=== PATIENT | female | born 1945 | race Caucasian/White ===

== ENCOUNTER 2019-02-28 14:32 | Emergency (ER) | payer OTHER ==
[~2019-02-28] VITALS: Ht 157.5 cm; Wt 59.0 kg
[2019-02-28] MEDS ORDERED: LOTREL 10-20 M1 EACH (14:52)
[2019-02-28] MEDS ORDERED: ATACAND32 MG (14:52)
[2019-02-28] MEDS ORDERED: SKELAXIN800 MG PO (17:31)
[2019-02-28] MEDS ORDERED: KETO10TA2 PO (17:31)
== END 2019-02-28 19:06 | disposition home or self-care (01) ==
LOC: ER 14:32
DX: S01.81XA Laceration without foreign body of other part of head, initial encounter (principal); W18.39XA Other fall on same level, initial encounter; Y93.89 Activity, other specified; Y92.59 Other trade areas as the place of occurrence of the external cause; Y99.8 Other external cause status

== ENCOUNTER 2019-12-05 08:00 | Inpatient (IN) | payer OTHER ==
[~2019-12-05] VITALS: Ht 160 cm; Wt 58.5 kg
[~2019-12-05 08:00] MED LIST: ATACAND32 MG; KETO10TA2 PO; LOTREL 10-20 M1 EACH; SKELAXIN800 MG PO
[2020-02-06] MEDS ORDERED: ATACAND HCT 321 EAC1 PO (08:37)
[2020-02-10] MEDS ORDERED: CODE1TAB37 PO (11:22)
[2020-02-10] MEDS ORDERED: IBUPROFEN400 MG PO (11:23)
== END 2020-02-10 12:27 | disposition home or self-care (01) | DRG 743 ==
LOC: O/R 12-12 08:00 → OB/GYN 02-06 05:37 → O/R 02-06 07:15 → OB/GYN 02-06 11:03
PROVIDERS: ADMIT Obstetrics & Gynecology
PROC: 0UT70ZZ Resection of Bilateral Fallopian Tubes, Open Approach (ICD-10-PCS; 2020-02-06)
PROC: 0UT20ZZ Resection of Bilateral Ovaries, Open Approach (ICD-10-PCS; 2020-02-06)
PROC: 0TJB8ZZ Inspection of Bladder, Via Natural or Artificial Opening Endoscopic (ICD-10-PCS; 2020-02-06)
PROC: 0UT90ZZ Resection of Uterus, Open Approach (ICD-10-PCS; principal; 2020-02-06 07:15)
DX: N95.0 Postmenopausal bleeding (principal); C54.1 Malignant neoplasm of endometrium; I10 Essential (primary) hypertension

== ENCOUNTER 2020-03-06 08:27 | Outpatient (CLI) | payer OTHER ==
[~2020-03-06 08:27] MED LIST changes: +ATACAND HCT 321 EAC1 PO; +CODE1TAB37 PO; +IBUPROFEN400 MG PO
== END 2020-03-06 08:47 | disposition home or self-care (01) ==
LOC: NUCLEAR 08:27
PROVIDERS: ATTEND Obstetrics & Gynecology Gynecologic Oncology
DX: C54.1 Malignant neoplasm of endometrium (principal)
CPT/HCPCS: 78815; A9552

== ENCOUNTER 2020-04-02 07:00 | Day surgery (SDC) | payer OTHER ==
[~2020-04-02] VITALS: Ht 157.5 cm; Wt 53.5 kg
[~2020-04-02 07:00] MED LIST changes: -LOTREL 10-20 M1 EACH; +LOTREL 10-20 M1 EACH PO
== END 2020-04-02 13:00 | disposition home or self-care (01) ==
LOC: CIR.AMB 07:00 → OB/GYN 07:45 → ADM 07:45 → EDSTATUS 07:45 → CIR.AMB 07:45 → O/R 17:35
PROVIDERS: ATTEND Obstetrics & Gynecology Gynecologic Oncology
DX: C54.1 Malignant neoplasm of endometrium (principal); R59.0 Localized enlarged lymph nodes; Z20.828 Contact with and (suspected) exposure to other viral communicable diseases; Z85.42 Personal history of malignant neoplasm of other parts of uterus; Z08 Encounter for follow-up examination after completed treatment for malignant neoplasm

== ENCOUNTER 2021-03-30 09:58 | Emergency (ER) | payer OTHER ==
[~2021-03-30] VITALS: Ht 157.5 cm; Wt 53.5 kg
[2021-03-30] MEDS ORDERED: MEDROLPACK PO (17:31)
== END 2021-03-30 17:48 | disposition home or self-care (01) ==
LOC: ER 09:58
DX: M54.16 Radiculopathy, lumbar region (principal); M54.13 Radiculopathy, cervicothoracic region; R20.0 Anesthesia of skin